=== PATIENT | male | born 1970 | race Caucasian/White ===

== ENCOUNTER 2019-10-10 16:46 | Emergency (ER) | payer MEDICAID ==
[~2019-10-10] VITALS: Ht 180.3 cm; Wt 81.8 kg
[~2019-10-10 16:46] MED LIST: RISP2 PO
[2019-10-10 17:02] VITALS: BP 155/89
== END 2019-10-10 20:40 | disposition left against medical advice (07) ==
LOC: EMS 16:48
DX: Z53.21 Procedure and treatment not carried out due to patient leaving prior to being seen by health care provider (principal)